=== PATIENT | male | born 1955 | race Caucasian/White ===

== ENCOUNTER 2020-03-20 08:11 | Emergency (ER) | payer BC ==
--- NOTE | 2020-03-20 08:38 | ED ---
Complex/Multi-Sys Presentation - HPI Summary HPI Summary: 64 y/o male presented to [facility] for atraumatic left anterior ankle pain rated 10/ 10 present for days. Pt first felt pain 6 days ago after a hike. For the next few days the pt was able to walk on the ankle but it "took a while to loosen up " before he could do so. 2 days ago the pain seemed to improve but that night pain greatly increased and kept the pt from sleeping. Pt notes pain and swelling in the anterior ankle and denies fever, knee pain, and calf pain. Pt has been using ASA and ice but states the pain is still unbearable. No hx gout noted. - History Of Current Complaint Chief Complaint: EDExtremityLower Time Seen by Provider: 03/20/20 08:20 Hx Obtained From: Patient Onset/Duration: Lasting Days, Still Present Timing: Days Severity Currently: Severe Location: Pain At: - left anterior ankle Associated Signs And Symptoms: Positive: Edema - anterior ankle, Other - negative - knee or calf pain. Negative: Fever, Recent Trauma - Allergies/Home Medications Allergies/Adverse Reactions: Allergies Allergy/AdvReac Type Severity Reaction Status Date / Time No Known Allergies Allergy Verified 03/20/20 08:18 Home Medications: Home Medications Ibuprofen TAB* [Motrin TAB* 800 MG] 800 mg PO Q6H PRN #20 tab 03/20/20 [Rx] PMH/Surg Hx/FS Hx/Imm Hx Endocrine/Hematology History: Denies: Hx Diabetes Cardiovascular History: Denies: Hx Hypertension, Hx Pacemaker/ICD Respiratory History: Denies: Hx Asthma Sensory History: Denies: Hx Hearing Aid Psychiatric History: Denies: Hx Panic Disorder - Surgical History Surgery Procedure, Year, and Place: T&A Infectious Disease History: No Infectious Disease History: Denies: Traveled Outside the [place] in Last 30 Days Review of Systems Negative: Fever Musculoskeletal: Other - negative - knee and calf pain Positive: Edema - anterior ankle, Other - anterior ankle pain All Other Systems Reviewed And Are Negative: Yes Physical Exam - Summary Physical Exam Summary: Constitutional: Well-developed, Well-nourished, Alert. (-) Distressed Skin: Warm, Dry HENT: Normocephalic; Atraumatic Eyes: Conjunctiva normal Neck: Musculoskeletal ROM normal neck. (-) JVD, (-) Stridor, (-) Tracheal deviation Cardio: Rhythm regular, rate normal, Heart sounds normal; Intact distal pulses; The pedal pulses are 2+ and symmetric. Radial pulses are 2+ and symmetric. (-) Murmur Pulmonary/Chest wall: Effort normal. (-) Respiratory distress, (-) Wheezes, (-) Rales Abd: Soft, (-) tenderness, (-) Distension, (-) Guarding, (-) Rebound Musculoskeletal: (-) Edema; Slight swelling over left medial malleolus. No gross conformity or contusion. NV intact. Lymph: (-) Cervical adenopathy Neuro: Alert, Oriented x3 Psych: Mood and affect Normal Triage Information Reviewed: Yes Vital Signs On Initial Exam: Initial Vitals Temp Pulse Resp BP Pulse Ox 97.5 F 85 16 177/101 99 03/20/20 08:13 03/20/20 08:13 03/20/20 08:13 03/20/20 08:13 03/20/20 08:13 Vital Signs Reviewed: Yes Procedures - Sedation Patient Received Moderate/Deep Sedation with Procedure: No Diagnostics - Vital Signs Vital Signs Temp Pulse Resp BP Pulse Ox 03/20/20 08:13 97.5 F 85 16 177/101 99 - Laboratory Lab Statement: Any lab studies that have been ordered have been reviewed, and results considered in the medical decision making process. - Radiology Xray left ankle Radiology Interpretation Completed By: Radiologist Summary of Radiographic Findings: IMPRESSION: JOINT EFFUSION. NO ACUTE OSSEOUS INJURY. IF SYMPTOMS PERSIST, RECOMMEND REPEAT IMAGING. This report was reviewed by Dr. Davila. Complex Multi-Symp Course/Dx Course Of Treatment: 64 y/o male presented to [facility] for atraumatic anterior ankle pain rated 10/10 present for days. Pt first felt pain 6 days ago after a hike. For the next few days the pt was able to walk on the ankle but it "took a while to loosen up" before he could do so. 2 days ago the pain seemed to improve but that night pain greatly increased and kept the pt from sleeping. Pt notes pain and swelling in the anterior ankle and denies fever, knee pain, and calf pain. Pt has been using ASA and ice but states the pain is still unbearable. No hx gout noted. Exam showed Slight swelling over left medial malleolus. No gross conformity or contusion. NV intact. X-ray ankle showed JOINT EFFUSION. NO ACUTE OSSEOUS INJURY. IF SYMPTOMS PERSIST, RECOMMEND REPEAT IMAGING. Patient states that he has been doing a lot of walking at [facility], walking up and down steep stairs. Exam and imaging findings consistent with probable ankle sprain/overuse syndrome. No evidence of septic joint. Did discuss lab work including inflammatory markers and uric acid, however patient declining at this time. Patient given prescription for Motrin. Has ankle splint and crutches at home. Also given orthopedic referral. Pt was diagnosed with Ankle sprain, Joint effusion; and discharged to home. - Diagnoses Provider Diagnoses: Ankle sprain, Joint effusion - Critical Care Time Critical Care Statement: Critical care time is provided exclusive of any time spent performing procedures. Discharge ED - Sign-Out/Discharge Documenting (check all that apply): Patient Departure - dc - Discharge Plan Condition: Stable Disposition: HOME Prescriptions: Ibuprofen TAB* [Motrin TAB* 800 MG] 800 mg PO Q6H PRN #20 tab PRN Reason: Pain - Moderate Patient Education Materials: Ankle Sprain (ED) Referrals: Keerthi Zuñiga MD [Primary Care Provider] - Erick Carroll MD [Medical Doctor] - Additional Instructions: Follow up with Dr. Carroll at the first available appointment. If you experience new or worsening symptoms please return to the ER. - Billing Disposition and Condition Condition: STABLE Disposition: Home - Attestation Statements Document Initiated by Lionel: Yes Documenting Scribe: Madi Wright Provider For Whom Lionel is Documenting (Include Credential): Adam Davila DO Scribe Attestation: Madi Ernst scribed for Adam Davila DO on 03/20/20 at 1241. Scribe Documentation Reviewed: Yes Provider Attestation: The documentation as recorded by the talateMadi accurately reflects the service I personally performed and the decisions made by , Adam Davila DO Status of Scrkarolyn Document: Viewed
[2020-03-20 11:18] VITALS: BP 162/95
== END 2020-03-20 11:18 | disposition home or self-care (01) ==
LOC: ED 08:11
DX: S93.402A Sprain of unspecified ligament of left ankle, initial encounter (principal); M25.472 Effusion, left ankle; Z79.82 Long term (current) use of aspirin
CPT/HCPCS: 99282